=== PATIENT | female | born 1945 | race Caucasian/White ===

== ENCOUNTER 2018-06-19 12:37 | Inpatient (IN) | payer MEDICARE ==
[2018-06-19 15:27] LABS: Hematocrit 35 % (35-47); Hemoglobin 11.9 g/dl (12.0-16.0); Mean Corpuscular HGB Conc 34 g/dl (31-36); Mean Corpuscular Hemoglobin 31 pg (27-31); Mean Corpuscular Volume 90 fL (80-97); Mean Platelet Volume 7.4 um3 (7.4-10.4); Platelet Count 269 10^3/ul (150-450); Red Blood Count 3.88 10^6/ul (4.00-5.40); Red Cell Distribution Width 13 % (10.5-15); White Blood Count 6.2 10^3/ul (3.5-10.8)
[2018-06-19 15:41] LABS: INR 0.93 (0.77-1.02)
[2018-06-19 15:45] LABS: EGFR Non-African American 54.1 (>60)
[2018-06-19 15:53] LABS: ABS Basophils 0 10^3/ul (0-0.2); ABS Neutrophils 5.1 10^3/ul (1.5-7.7); ABS Neutrophils 5.2 10^3/ul (1.5-7.7); Monocytes % 5 % (0-7)
--- NOTE | 2018-06-19 15:57 | RAD ---
Indication: Chest pain. Nausea. Hypertension. Comparison: May 02, 2016 Technique: Upright AP 1528 hours Report: Minimal linear atelectasis at the LEFT lower lung zone. The lungs and pleural spaces are otherwise clear. The heart, pulmonary vasculature, and mediastinal contours are unremarkable. Healed fracture at the LEFT humeral neck noted. IMPRESSION: #. No evidence for acute intrathoracic disease.
--- NOTE | 2018-06-19 16:04 | ED ---
HPI Chest Pain - HPI Summary HPI Summary: This patient is a 73 year old F presenting to [facility] accompanied by family with a chief complaint of sudden back and chest pressure and pain that wrapped around the chest and radiated to the left shoulder lasting for a couple hours this morning that is currently improved. Pain was 10/10; pain is now 2/10. Denies SOB. Patient reports nausea and two bouts of vomiting with the onset of pain. She states she took two tramadol without relief of pain and then took two more. PMHx of HTN and Fibromyalgia. Denies PMHx of ID and CAD. Reports no previous cardiac workup. - History of Current Complaint Chief Complaint: EDChestPainROMI Time Seen by Provider: 06/19/18 14:50 Hx Obtained From: Patient Onset/Duration: Started Hours Ago Timing: Constant Initial Severity: Severe Current Severity: Mild Pain Intensity: 2 Pain Scale Used: 0-10 Numeric Chest Pain Location: Diffuse - back and chest Chest Pain Radiates: Yes Chest Pain Radiates To:: Shoulder Character: Pressure/Squeezing Alleviating Factor(s): Spontaneous Resolution Associated Signs and Symptoms: Positive: Chest Pain, Nausea, Back Pain, Vomiting. Negative: Shortness of Breath - Additional Pertinent History Primary Care Physician: JULISA - Allergy/Home Medications Allergies/Adverse Reactions: Allergies Allergy/AdvReac Type Severity Reaction Status Date / Time aspirin Allergy Swelling Verified 06/19/18 14:38 codeine Allergy See Comment Verified 06/19/18 14:38 PMH/Surg Hx/FS Hx/Imm Hx Endocrine/Hematology History: Denies: Hx Diabetes Cardiovascular History: Reports: Hx Hypertension Denies: Hx Myocardial Infarction Musculoskeletal History: Denies: Hx Osteoporosis - Surgical History Surgery Procedure, Year, and Place: left and right knee replacements. gallbladder Infectious Disease History: No Infectious Disease History: Denies: Hx Clostridium Difficile, Hx Hepatitis, Hx Human Immunodeficiency Virus (HIV), Hx of Known/Suspected MRSA, Traveled Outside the [place] in Last 30 Days - Family History Known Family History: Negative: Cardiac Disease - Social History Alcohol Use: None Substance Use Type: Reports: None Smoking Status (MU): Never Smoked Tobacco Review of Systems Positive: Chest Pain Negative: Shortness Of Breath Positive: Vomiting, Nausea Positive: Myalgia - back and shoulder pain All Other Systems Reviewed And Are Negative: Yes Physical Exam - Summary Physical Exam Summary: GENERAL: Patient is a well developed and nourished female who is lying comfortable in the stretcher. Patient is not in any acute respiratory distress. HEAD AND FACE: Normocephalic EYES: PERRLA, EOMI x 2. EARS: Hearing grossly intact. MOUTH: Oropharynx within normal limits. NECK: Supple, trachea is midline, no adenopathy, no JVD, no carotid bruit. CHEST: Symmetric, no tenderness at palpation LUNGS: Clear to auscultation bilaterally. No wheezing or crackles. CVS: Regular rate and rhythm, S1 and S2 present, no murmurs or gallops appreciated. ABDOMEN: Soft, non-tender. Bowel sounds are normal. No abdominal abnormal pulsations. EXTREMITIES: Full ROM in all major joints, no edema, no cyanosis or clubbing. NEURO: Alert and oriented x 3. No acute neurological deficits. Speech is normal and follows commands. SKIN: Dry and warm Triage Information Reviewed: Yes Vital Signs On Initial Exam: Initial Vitals Temp Pulse Resp BP Pulse Ox 97.8 F 94 16 153/90 96 06/19/18 13:49 06/19/18 13:49 06/19/18 13:49 06/19/18 13:49 06/19/18 13:49 Vital Signs Reviewed: Yes Diagnostics - Vital Signs Vital Signs Temp Pulse Resp BP Pulse Ox 06/19/18 15:42 61 15 135/87 88 06/19/18 15:11 20 134/91 06/19/18 15:00 86 20 96 06/19/18 14:59 95 06/19/18 14:42 16 146/96 06/19/18 14:39 26 06/19/18 13:49 97.8 F 94 16 153/90 96 - Laboratory Lab Results: Lab Results 06/19/18 06/19/18 06/19/18 Range/Units 15:20 15:20 15:20 WBC 6.2 (3.5-10.8) 10^3/ul RBC 3.88 L (4.00-5.40) 10^6/ul Hgb 11.9 L (12.0-16.0) g/dl Hct 35 (35-47) % MCV 90 (80-97) fL MCH 31 (27-31) pg MCHC 34 (31-36) g/dl RDW 13 (10.5-15) % Plt Count 269 (150-450) 10^3/ul MPV 7.4 (7.4-10.4) um3 Neut % (Auto) Not Reportable Lymph % (Auto) Not Reportable Brule % (Auto) Not Reportable Eos % (Auto) Not Reportable Baso % (Auto) Not Reportable Absolute Neuts (auto) 5.2 (1.5-7.7) 10^3/ul Absolute Lymphs (auto) Not Reportable Absolute Monos (auto) Not Reportable Absolute Eos (auto) Not Reportable Absolute Basos (auto) Not Reportable Absolute Nucleated RBC Not Reportable Immature Gran % 1 (0-9) % Neutrophils % 82 (38-83) % Band Neutrophils % 1 (0-8) % Lymphocytes % 11 L (25-47) % Monocytes % 5 (0-7) % Eosinophils % 1 (0-6) % Basophils % 0 (0-2) % Nucleated RBC % Not Reportable Abs Neuts (Manual) 5.1 (1.5-7.7) 10^3/ul Abs Lymphs (Manual) 0.7 L (1.0-4.8) 10^3/ul Abs Monocytes (Manual) 0.3 (0-0.8) 10^3/ul Absolute Eos (Manual) 0.1 (0-0.6) 10^3/ul Abs Basophils (Manual) 0 (0-0.2) 10^3/ul Normal RBC Morphology Normal (Normal) Hem Pathologist Commnt Pending INR (Anticoag Therapy) 0.93 (0.77-1.02) APTT 28.8 (26.0-36.3) seconds Sodium 139 (135-145) mmol/L Potassium 3.7 (3.5-5.0) mmol/L Chloride 101 (101-111) mmol/L Carbon Dioxide 31 (22-32) mmol/L Anion Gap 7 (2-11) mmol/L BUN 21 (6-24) mg/dL Creatinine 1.00 H (0.51-0.95) mg/dL Est GFR ( Amer) 65.4 (>60) Est GFR (Non-Af Amer) 54.1 (>60) BUN/Creatinine Ratio 21.0 H (8-20) Glucose 105 H (70-100) mg/dL Lactic Acid (0.5-2.0) mmol/L Calcium 9.7 (8.6-10.3) mg/dL Magnesium 1.5 L (1.9-2.7) mg/dL Total Bilirubin 0.50 (0.2-1.0) mg/dL AST 32 (13-39) U/L ALT 27 (7-52) U/L Alkaline Phosphatase 94 (34-104) U/L Troponin I 0.01 (<0.04) ng/mL B-Natriuretic Peptide ( - 100) pg/mL Total Protein 7.1 (6.4-8.9) g/dL Albumin 4.3 (3.2-5.2) g/dL Globulin 2.8 (2-4) g/dL Albumin/Globulin Ratio 1.5 (1-3) 06/19/18 06/19/18 Range/Units 15:20 15:20 WBC (3.5-10.8) 10^3/ul RBC (4.00-5.40) 10^6/ul Hgb (12.0-16.0) g/dl Hct (35-47) % MCV (80-97) fL MCH (27-31) pg MCHC (31-36) g/dl RDW (10.5-15) % Plt Count (150-450) 10^3/ul MPV (7.4-10.4) um3 Neut % (Auto) Lymph % (Auto) Brule % (Auto) Eos % (Auto) Baso % (Auto) Absolute Neuts (auto) (1.5-7.7) 10^3/ul Absolute Lymphs (auto) Absolute Monos (auto) Absolute Eos (auto) Absolute Basos (auto) Absolute Nucleated RBC Immature Gran % (0-9) % Neutrophils % (38-83) % Band Neutrophils % (0-8) % Lymphocytes % (25-47) % Monocytes % (0-7) % Eosinophils % (0-6) % Basophils % (0-2) % Nucleated RBC % Abs Neuts (Manual) (1.5-7.7) 10^3/ul Abs Lymphs (Manual) (1.0-4.8) 10^3/ul Abs Monocytes (Manual) (0-0.8) 10^3/ul Absolute Eos (Manual) (0-0.6) 10^3/ul Abs Basophils (Manual) (0-0.2) 10^3/ul Normal RBC Morphology (Normal) Hem Pathologist Commnt INR (Anticoag Therapy) (0.77-1.02) APTT (26.0-36.3) seconds Sodium (135-145) mmol/L Potassium (3.5-5.0) mmol/L Chloride (101-111) mmol/L Carbon Dioxide (22-32) mmol/L Anion Gap (2-11) mmol/L BUN (6-24) mg/dL Creatinine (0.51-0.95) mg/dL Est GFR ( Amer) (>60) Est GFR (Non-Af Amer) (>60) BUN/Creatinine Ratio (8-20) Glucose (70-100) mg/dL Lactic Acid 0.9 (0.5-2.0) mmol/L Calcium (8.6-10.3) mg/dL Magnesium (1.9-2.7) mg/dL Total Bilirubin (0.2-1.0) mg/dL AST (13-39) U/L ALT (7-52) U/L Alkaline Phosphatase (34-104) U/L Troponin I (<0.04) ng/mL B-Natriuretic Peptide 77 ( - 100) pg/mL Total Protein (6.4-8.9) g/dL Albumin (3.2-5.2) g/dL Globulin (2-4) g/dL Albumin/Globulin Ratio (1-3) Result Diagrams: 06/21/18 07:10 06/20/18 05:07 Lab Statement: Any lab studies that have been ordered have been reviewed, and results considered in the medical decision making process. - Radiology CXR Radiology Interpretation Completed By: Radiologist - No evidence for acute intrathoracic disease. ED Physician has reviewed this report. - EKG 1357 Cardiac Rate: NL - 86 BPM EKG Rhythm: Sinus Rhythm EKG Interpretation: borderline prolonged QT, intaventricular conduction delay Chest Pain Course/Dx - Course Course Of Treatment: 73 year old F presenting to [facility] accompanied by family with a chief complaint of sudden back and chest pressure and pain that wrapped around the chest and radiated to the left shoulder lasting for a couple hours this morning that is currently improved. Denies SOB. Patient reports nausea and two bouts of vomiting with the onset of pain. A CXR is unremarkable. An EKG reveals NSR with borderline prolonged QT, intaventricular conduction delay. Patient is given 0.4 Nitro and Plavix. ASA not administed as patient is allergic. Bloodwork is obtained with a troponin of 0.01. Disccused case with Dr. Epstein, who accepts patient for OBV admission. Patient is agreeable with this plan. - Diagnoses Provider Diagnoses: Chest pain - Provider Notifications Discussed Care Of Patient With: Tamanna Epstein - hospitalist Time Discussed With Above Provider: 16:33 Instructed by Provider To: Admit As Inpatient Discharge - Sign-Out/Discharge Documenting (check all that apply): Patient Departure - admit - Discharge Plan Condition: Stable Disposition: ADMITTED TO [facility] - Billing Disposition and Condition Condition: STABLE Disposition: Admitted to [facility] - Attestation Statements Document Initiated by Meiibe: Yes Documenting Scribe: Almita Dawn Provider For Whom Scribe is Documenting (Include Credential): Carolyn Reyna MD Scribe Attestation: Almita Horton, scribed for Carolyn Reyna MD on 06/21/18 at 0749. Scribe Documentation Reviewed: Yes Provider Attestation: The documentation as recorded by the Almita hartmann accurately reflects the service I personally performed and the decisions made by Carolyn monroe MD
[2018-06-19] MEDS ORDERED: Nitroglycerin TAB 0.4 MG* 0.4 MG TAB SL ONE (16:32)
[2018-06-19] MEDS ORDERED: Clopidogrel TAB* 75 MG PO ONE (16:32)
[2018-06-19] MEDS ORDERED: PROCHLORPERAZINE INJ 5 MG/ML 2 ML VIAL IV PRN (17:10)
[2018-06-19] MEDS ORDERED: Acetaminophen TAB* 325 MG PO PRN (17:10)
[2018-06-19] MEDS ORDERED: Iodixanol* (CONTRAST) 320 MG/ML 100 ML SDV IV ONE (17:17)
[2018-06-19] MEDS ORDERED: Magnesium Sulfate IV* 3 GM in NS 0.9% 100 ML* 100 ML IVPB ONE (17:26)
--- NOTE | 2018-06-19 18:19 | RAD ---
EXAM: CT Angiography Abdomen and Pelvis With Intravenous Contrast CLINICAL HISTORY: 73 years old, female; Pain; Chest pain; Type not specified; Abdominal pain; Generalized; Patient HX: No HX of aneurysm per pt; Additional info: Chest/back pain R/O dissection TECHNIQUE: Axial computed tomographic angiography images of the abdomen and pelvis with intravenous contrast. All CT scans at this facility use at least one of these dose optimization techniques: automated exposure control; mA and/or kV adjustment per patient size (includes targeted exams where dose is matched to clinical indication); or iterative reconstruction. 3D and MIP reconstructed images were created and reviewed. Coronal and sagittal reformatted images were created and reviewed. CONTRAST: 100 mL of VISIPAQUE administered intravenously. COMPARISON: No relevant prior studies available. FINDINGS: Limitations: Limited atherosclerosis without dissection, aneurysm, or stenosis. VASCULATURE: Aorta: See above. Celiac trunk and mesenteric arteries: No acute findings. No occlusion or significant stenosis. Renal arteries: No acute findings. No occlusion or significant stenosis. Iliac arteries: No acute findings. No occlusion or significant stenosis. Lung bases: Unremarkable. No mass. No consolidation. ABDOMEN: Liver: Unremarkable. No mass. Gallbladder and bile ducts: Cholecystectomy with biliary ectasia. No ductal dilation. Pancreas: Unremarkable. No ductal dilation. No mass. Spleen: Unremarkable. No splenomegaly. Adrenals: Unremarkable. No mass. Kidneys and ureters: Unremarkable. No hydronephrosis. No solid mass. Stomach and bowel: Unremarkable. No obstruction. No mucosal thickening. PELVIS: Appendix: Normal appendix. Bladder: Unremarkable. No mass. Reproductive: Unremarkable as visualized. ABDOMEN and PELVIS: Intraperitoneal space: Posteriorly in the right side of the pelvis there is a septated 5 x 3.7 cm cystic mass, abnormal for age. This may be benign or malignant. No significant fluid collection. No free air. Bones/joints: Moderate skeletal degenerative change. No acute fracture. No dislocation. Soft tissues: Unremarkable. Lymph nodes: Unremarkable. No enlarged lymph nodes. Other findings: No other acute disease seen. As above. IMPRESSION: 1. Limited atherosclerosis without dissection, aneurysm, or stenosis. 2. Posteriorly in the right side of the pelvis there is a septated 5 x 3.7 cm cystic mass, abnormal for age. This may be benign or malignant. 3. No other acute disease seen. As above. EXAM: CT Angiography Chest With Intravenous Contrast CLINICAL HISTORY: 73 years old, female; Pain; Chest pain; Type not specified; Abdominal pain; Generalized; Patient HX: No HX of aneurysm per pt; Additional info: Chest/back pain R/O dissection TECHNIQUE: Axial computed tomographic angiography images of the chest with intravenous contrast using pulmonary embolism protocol. All CT scans at this facility use at least one of these dose optimization techniques: automated exposure control; mA and/or kV adjustment per patient size (includes targeted exams where dose is matched to clinical indication); or iterative reconstruction. 3D and MIP reconstructed images were created and reviewed. Coronal and sagittal reformatted images were created and reviewed. CONTRAST: 100 mL of VISIPAQUE administered intravenously. 100 mL of VISIPAQUE administered intravenously. COMPARISON: No relevant prior studies available. FINDINGS: Pulmonary arteries: There is a moderate sized segmental embolus in the right upper lobe extending laterally with small additional adjacent embolus extending posteriorly. Aorta: Moderate atherosclerosis without dissection or aneurysm in the chest abdomen or pelvis. Lungs: No consolidation, effusion or edema. Pleural space: See above. Heart: Unremarkable. No cardiomegaly. No significant pericardial effusion. No evidence of RV dysfunction. Bones/joints: There is a subacute or chronic compression fracture superior endplate of T7 with mild anterior wedging and no retropulsion. There is a chronic moderate compression fracture superior endplate of T11 with anterior wedging in 3 mm chronic retropulsion. Old rib fractures. Soft tissues: See above. Lymph nodes: Unremarkable. No enlarged lymph nodes. IMPRESSION: 1. There is a moderate sized segmental embolus in the right upper lobe extending laterally with small additional adjacent embolus extending posteriorly. 2. Moderate atherosclerosis without dissection or aneurysm in the chest abdomen or pelvis. 3. No consolidation, effusion or edema. 4. There is a subacute or chronic compression fracture superior endplate of T7 with mild anterior wedging and no retropulsion. There is a chronic moderate compression fracture superior endplate of T11 with anterior wedging in 3 mm chronic retropulsion.
[2018-06-19] MEDS ORDERED: NS 0.9% 100 ML* 100 ML ONE (19:39)
--- NOTE | 2018-06-19 19:48 | HP ---
CC: Dr. Bear HISTORY AND PHYSICAL: DATE OF ADMISSION: 06/19/18 TIME OF EVALUATION: 4:50 p.m. PRIMARY CARE PROVIDER: Dr. Bear. CHIEF COMPLAINT: Chest pain. HISTORY OF PRESENT ILLNESS: Ms. Restrepo is a 73-year-old lady with past medical history of hypertension , fibromyalgia, osteoarthritis, hyperlipidemia, who presented to the emergency room with complaints o f chest/back pain. The patient states she was on her usual state of health until around 1 in the morning. She states th at she was lying in bed, could not get comfortable and around 2 in the morning, she developed retrost ernal chest pain "under her ribs", radiating all the way down to her hip bones bilaterally and then g oing around to her back "like a vice." She states the pain was greater than 10/10 and it took her br eath away. She states that she took 2 of her tramadol and the pain subsided, but it did not disappea r. She states that she was able to sleep a little bit and then when she woke up, she tried to have some toast with coke and she developed multiple episodes of nausea and vomiting after that. Then she came to the emergency room for further evaluation. She denies fever, chills, cough, shortness of breath, palpitations. She never had an episode of ches t pain like this. There is no history of any recent trips. She has no lower extremity pain or edema . PAST MEDICAL HISTORY: 1. Hypertension. 2. Fibromyalgia. 3. Degenerative joint disease. 4. Diverticulosis. 5. Hyperlipidemia. 6. Osteopenia. PAST SURGICAL HISTORY: 1. Status post laparoscopic cholecystectomy. 2. Status post left total knee arthroplasty in 2007. 3. Right total knee replacement in 2016. MEDICATION LIST: 1. Amitriptyline 100 mg p.o. daily. 2. Amlodipine 5 mg p.o. daily. 3. Meloxicam 7.5 mg p.o. daily. 4. TheraTears [place] 1200 units both eyes daily. 5. Tramadol 50 mg p.o. q.6 hours p.r.n. pain. 6. Clinoril. 7. Oxycodone. 8. Lidocaine. ALLERGIES: With ASPIRIN, the patient has swelling and with CODEINE, the patient became depressed. FAMILY HISTORY: She has no family history of heart disease or diabetes. Her mother passed of colon cancer and her father presumably from lung cancer. SOCIAL HISTORY: There is no history of tobacco, alcohol, or drug use. She is retired and surrogate decision maker is her , Vadim Restrepo or her son, Chalo Restrepo. Phone number is [phone]. REVIEW OF SYSTEMS: A 14-point review of systems was performed and all the pertinent negative and pos itive findings are in the HPI. PHYSICAL EXAMINATION GENERAL: The patient is a pleasant elderly lady, sitting up in the ED stretcher, in no acute distres s. VITAL SIGNS: Temperature 97.8, heart rate is 87, respiratory rate is 20, oxygen saturation is 94% on room air, blood pressure is 146/85. HEENT: Pupils are equal and reactive to light. Extraocular movements are intact. CHEST: Breath sounds bilaterally with no added sounds. CVS: Normal S1, S2. Regular rate and rhythm. ABDOMEN: Soft. Bowel sounds are present. No pulsatile mass. EXTREMITIES: No edema. She has equal pulses bilaterally. NEURO: She is alert, oriented x3. Able to move all 4 extremities. DIAGNOSTIC STUDIES/LAB DATA: The patient had a CBC that showed a WBC of 6.2, hemoglobin of 11.9, he matocrit of 35, platelets of 269 with 82% neutrophils. INR is 0.9. Chemistry showed sodium of 139, potassium of 3.7, chloride of 101, BUN of 21, creatinine of 1, glucose of 105, lactic acid of 0.9, ca lcium of 9.7, magnesium of 1.5. LFTs are normal. First troponin was 0.01. BNP was 77. Chest x-ray shows no evidence for acute intrathoracic disease. EKG done on 06/19/18 at 1357, showed normal sinus rhythm at 86 beats per minute with an incomplete le ft bundle. No ST-T changes. Her QRS appears to be wider now when compared to her prior EKG from Apr suggesting progressive conduction defect. ASSESSMENT AND PLAN: Ms. Restrepo is a 73-year-old lady with past medical history of hypertension, fibro myalgia, degenerative joint disease, diverticulosis, hyperlipidemia that presented to the emergency r oom with complaints of an episode of chest pain radiating to her abdomen and back. 1. Chest pain, rule out acute coronary syndrome; rule out dissection. The patient will be admitted as observation to the telemetry floor and we are going to monitor her rhythm and check serial troponi ns. She will have a CTA of the chest, abdomen, and pelvis to rule out dissection. If she is ruled o ut, I believe she would benefit of a stress test and this can be obtained inpatient versus outpatient . 2. Hypertension. It is controlled. The patient will be continued on her amlodipine. 3. Fibromyalgia. We will continue amitriptyline, meloxicam and tramadol. 4. DVT prophylaxis. The patient has a score of 3 on the DVT Prophylaxis Risk Assessment Guide and s he will be started on subcutaneous heparin. 5. Code status is full. TIME SPENT: Approximately 50 minutes was spent with the patient and family interview, medical record s review, physical examination to complete the admission, more than half of this time was spent face- to-face with the patient and coordination of care. [id number] #: [id number]
[2018-06-19] MEDS: Enoxaparin(*) 80 MG/0.8 ML SYR SUBCUT SCH (19:57)
[2018-06-19] MEDS: traMADol TAB* 50 MG PO PRN (20:12)
[2018-06-19] MEDS: Amitriptyline TAB* 100 MG PO SCH (20:41)
[2018-06-19] MEDS ORDERED: Amitriptyline TAB* 100 MG PO SCH (21:00)
[2018-06-19] MEDS ORDERED: Heparin VIAL(*) 5000 UNITS/ML VIAL (FIVE THOUSAND) SUBCUT SCH (22:00)
[2018-06-20] MEDS: Enoxaparin(*) 80 MG/0.8 ML SYR SUBCUT SCH ×2 (05:21→17:39)
[2018-06-20] MEDS: traMADol TAB* 50 MG PO PRN ×3 (05:26→21:33)
[2018-06-20 05:33] LABS: ABS Basophils 0 10^3/ul (0-0.2); ABS Eosinophils 0.1 10^3/ul (0-0.6); ABS Lymphocytes 1.5 10^3/ul (1.0-4.8); ABS Monocytes 0.5 10^3/ul (0-0.8); ABS Neutrophils 3.2 10^3/ul (1.5-7.7); ABS Nucleated RBC 0 10^3/ul; Eosinophil % 2.3 % (0-6); Hematocrit 36 % (35-47); Hemoglobin 11.9 g/dl (12.0-16.0); Lymphocyte % 27.8 % (25-47); Mean Corpuscular HGB Conc 34 g/dl (31-36); Mean Corpuscular Hemoglobin 31 pg (27-31); Mean Corpuscular Volume 91 fL (80-97); Mean Platelet Volume 7.6 um3 (7.4-10.4); Nucleated Red Blood Cells % 0.1; Platelet Count 255 10^3/ul (150-450); Red Cell Distribution Width 13 % (10.5-15); White Blood Count 5.3 10^3/ul (3.5-10.8)
[2018-06-20 05:48] LABS: EGFR Non-African American 58.8 (>60)
[2018-06-20] MEDS: CMC:Meloxicam(NF) 7.5 MG TAB PO SCH (08:39)
[2018-06-20] MEDS: amLODIPine TAB* 5 MG PO SCH (08:39)
--- NOTE | 2018-06-20 13:12 | PN ---
Subjective Date of Service: 06/20/18 Interval History: HOSPITALIST PROGRESS NOTE Patient seen and examined at bedside. Care reviewed and d/w Nettie Peters RN. She feels better today. Chest pain is resolved, denies dyspnea even though her SO2 was in the 80s. Denies abdominal pain. Had some "twitching" on her right hip , but no pain. Family History: Unchanged from Admission Social History: Unchanged from Admission Past Medical History: Unchanged from Admission Objective Active Medications: Acetaminophen (Tylenol Tab*) 650 mg PO Q6H PRN PRN Reason: pain/fever Amitriptyline HCl (Elavil Tab*) 200 mg PO BEDTIME [facility] Last Admin: 06/19/18 20:41 Dose: 200 mg Amlodipine Besylate (Norvasc Tab*) 5 mg PO DAILY [facility] Last Admin: 06/20/18 08:39 Dose: 5 mg Enoxaparin Sodium (Lovenox(*)) 80 mg SUBCUT Q12H [facility] Last Admin: 06/20/18 05:21 Dose: 80 mg Meloxicam (Mobic(Nf)) 7.5 mg PO DAILY [facility] Last Admin: 06/20/18 08:39 Dose: 7.5 mg Prochlorperazine Edisylate (Compazine Inj*) 5 mg IV Q6H PRN PRN Reason: NAUSEA/VOMITING Tramadol HCl (Ultram*) 50 mg PO Q6HR PRN PRN Reason: PAIN Last Admin: 06/20/18 05:26 Dose: 50 mg Vital Signs - 8 hr 06/20/18 06/20/18 06/20/18 05:26 07:29 08:00 Temperature 98.1 F Pulse Rate 93 Respiratory 18 20 Rate Blood Pressure 153/83 (mmHg) O2 Sat by Pulse 98 98 Oximetry 06/20/18 06/20/18 06/20/18 08:40 11:19 12:00 Temperature 98.1 F Pulse Rate 80 Respiratory 18 18 Rate Blood Pressure 127/75 (mmHg) O2 Sat by Pulse 96 98 Oximetry Oxygen Devices in Use Now: Nasal Cannula - 2 liters Appearance: Pleasant elderly lady sitting up in a chair in NAD. Eyes: No Scleral Icterus Ears/Nose/Mouth/Throat: Mucous Membranes Moist Neck: Trachea Midline Respiratory: Symmetrical Chest Expansion and Respiratory Effort, Clear to Auscultation Cardiovascular: RRR - Normal S1 and S2 Abdominal: NL Sounds; No Tenderness; No Distention Neurological: Alert and Oriented x 3, NL Muscle Strength and Tone Result Diagrams: 06/20/18 05:07 06/20/18 05:07 Assess/Plan/Problems-Billing Assessment: Mrs Restrepo is a 73yo F with PMH of HTN, fibromyalgia, HLD, DJD, who presented to ED with c/o CP, found to have PE. - Patient Problems (1) Acute hypoxemic respiratory failure Comment: - Secondary to PE. - Continue supplemental O2. (2) Pulmonary embolism Comment: - CTA chest showed right PE - no family h/o blood clots, no recent surgeries or trips. - Check LE doppler and echocardiogram. - CT abdome showed pelvic mass could represent ovarian tumor - will continue Lovenox for now as she may need a biopsy. (3) Pelvic mass Comment: - CT showed a 5x3 cm right pelvic mass - suspect ovarian - will check CA 125 and CEA. - Oncology consult requested. (4) Fibromyalgia Comment: - Continue amitrityline and tramadol. (5) Hypertension Comment: - BP well controlled. Continue amlodipine. (6) DVT prophylaxis Comment: - Lovenox. (7) Full code status Status and Disposition: Change to inpatient.
[2018-06-20] MEDS: Potassium Chlor TAB* 20 MEQ TAB.ER PO SCH ×3 (14:19→21:34)
--- NOTE | 2018-06-20 15:02 | RAD ---
HISTORY: Pulmonary embolism patient denies any lower extremity symptoms TECHNIQUE: Multiple transverse and longitudinal ultrasound images were obtained of the veins of the bilateral lower extremities using grayscale, color Doppler, and spectral Doppler imaging with and without compression and with augmentation. FINDINGS: VEINS: The common femoral vein, deep femoral vein, femoral vein and popliteal vein are compressible throughout their course, with normal flow on color Doppler imaging and normal response to augmentation on spectral Doppler imaging. SOFT TISSUES: Grossly normal. No large popliteal fossa cyst was identified. IMPRESSION: No sonographic evidence of deep vein thrombosis.
[2018-06-20] MEDS: Amitriptyline TAB* 100 MG PO SCH (21:32)
[2018-06-21] MEDS: Enoxaparin(*) 80 MG/0.8 ML SYR SUBCUT SCH ×2 (05:56→18:20)
[2018-06-21 07:25] LABS: ABS Basophils 0 10^3/ul (0-0.2); ABS Eosinophils 0.2 10^3/ul (0-0.6); ABS Lymphocytes 1.9 10^3/ul (1.0-4.8); ABS Monocytes 0.5 10^3/ul (0-0.8); ABS Neutrophils 2.5 10^3/ul (1.5-7.7); ABS Nucleated RBC 0 10^3/ul; Eosinophil % 3.5 % (0-6); Hematocrit 35 % (35-47); Lymphocyte % 37.5 % (25-47); Mean Corpuscular HGB Conc 34 g/dl (31-36); Mean Corpuscular Hemoglobin 31 pg (27-31); Mean Corpuscular Volume 91 fL (80-97); Mean Platelet Volume 7.5 um3 (7.4-10.4); Nucleated Red Blood Cells % 0; Platelet Count 264 10^3/ul (150-450); Red Cell Distribution Width 13 % (10.5-15); White Blood Count 5.1 10^3/ul (3.5-10.8)
[2018-06-21 07:51] LABS: EGFR Non-African American 52.2 (>60)
[2018-06-21] MEDS: amLODIPine TAB* 5 MG PO SCH (08:35)
[2018-06-21] MEDS: CMC:Meloxicam(NF) 7.5 MG TAB PO SCH (08:35)
--- NOTE | 2018-06-21 11:24 | ECHO ---
Patient: LADARIUS GIANG [facility] Rec#: [id number] : 1945 Date: 06/21/2018 Age: 73y Height: 173 cm / 68.1 in Weight: 83.5 kg / 184.0 lbs Sex: F BSA: 2 Room#: 433 Admit Date#: 06/20/2018 Type: Inpatient Referring: Taamnna Jimenes MD Reading: Kody Leonard MD Wooden Furniture Polisher: Majo Marina RN RDCS CC: Nallely Bear MD Transthoracic Echocardiogram Indication: Pulmonary embolism BP: 124/62 HR: 77 Rhythm: NSR Findings History: HTN, HLD, fibromyalgia Technical Comments: The study quality is fair. The study is technically limited due to patient body habitus. Left Ventricle: The left ventricular chamber size is normal. Mild to moderate concentric left ventricular hypertrophy is observed. There is increased basal septal hypertrophy noted without evidence of an increased gradient across the left ventricular outflow tract. Global left ventricular wall motion and contractility are within normal limits. There is normal left ventricular systolic function. The estimated ejection fraction is 60-65%. There is no consistent Doppler evidence of clinically significant diastolic dysfunction. Left Atrium: The left atrial chamber size is normal. Right Ventricle: The right ventricular cavity size is normal. The right ventricular global systolic function is normal. Right Atrium: The right atrium is not well visualized. The right atrial cavity size is normal. Aortic Valve: The aortic valve is trileaflet. The aortic valve leaflets are mildly thickened. There is aortic annular calcification. There is no evidence of aortic regurgitation. There is no evidence of aortic stenosis. Mitral Valve: The mitral valve leaflets are mildly thickened. There is mild mitral regurgitation. There is no evidence of mitral stenosis. Tricuspid Valve: The tricuspid valve leaflets are normal. There is trace to mild tricuspid regurgitation. No pulmonary hypertension is noted. There is no tricuspid stenosis. Pulmonic Valve: The pulmonic valve structure is not well visualized. There is a trace pulmonic regurgitation. There is no pulmonic stenosis. Pericardium: There is no significant pericardial effusion. A pericardial fat pad is visualized. Aorta: There is mild dilatation of the ascending aorta. There is no dilatation of the aortic arch. There is no dilation of the aortic root. Pulmonary Artery: The main pulmonary artery is not well visualized. Venous: The inferior vena cava appears normal in size. There is an approximate 50% respiratory change in the inferior vena cava dimension. Conclusions Global left ventricular wall motion and contractility are within normal limits. There is normal left ventricular systolic function. The estimated ejection fraction is 60-65%. Mild to moderate concentric left ventricular hypertrophy is observed. The right ventricular global systolic function is normal. The aortic valve leaflets are mildly thickened. There is no evidence of aortic stenosis. There is no evidence of aortic regurgitation. There is mild mitral regurgitation. There is trace to mild tricuspid regurgitation. No pulmonary hypertension is noted. There is no significant pericardial effusion. Measurements Name Value Normal Range RVDdMajor (2D) 3.1 cm (2.2 - 4.4) RAd ISD 4CH 3.6 cm (3.4 - 4.9) RA (A4C)W 2.7 cm (2.9 - 4.6) IVSd (2D) 1.3 cm (0.6 - 1) LVPWd (2D) 1.3 cm (0.6 - 1) LVIDd (2D) 4.1 cm (3.6 - 5.4) LVIDs (2D) 2.7 cm - LV FS (2D) 34 % (25 - 45) Aortic Annulus 2 cm (1.4 - 2.6) Ao root diameter (2D) 2.9 cm (2.1 - 3.5) Ascending Ao 3.5 cm (2.1 - 3.4) Aortic arch 2.9 cm (1.8 - 3.4) LA dimension (AP) 2D 2.8 cm (2.3 - 3.8) LAd ISD 4CH 3.9 cm (2.9 - 5.3) LA ISD 4CH W 3.6 cm (2.5 - 4.5) Name Value Normal Range LA ESV BP (A/L) index 13.6 ml/m2 - Name Value Normal Range MV E-wave Vmax 0.75 m/sec - MV deceleration time 208 msec - MV A-wave Vmax 1.1 m/sec - MV E:A ratio 0.7 ratio - LV septal e' Vmax 0.07 m/sec - LV lateral e' Vmax 0.07 m/sec - LV E:e' septal ratio 10.7 ratio - LV E:e' lateral ratio 10.7 ratio - Name Value Normal Range AV Vmax 1.4 m/sec - AV VTI 23.8 cm - AV peak gradient 8 mmHg - AV mean gradient 5 mmHg - LVOT Vmax 0.87 m/sec - LVOT VTI 16.9 cm - LVOT peak gradient 3 mmHg - LVOT mean gradient 2 mmHg - LEANN Vmax 0.64 m/sec - Name Value Normal Range TR Vmax 2.4 m/sec - TR peak gradient 23 mmHg - RAP 8 mmHg - RVSP 31 mmHg - IVC diameter 1.4 cm - Name Value Normal Range PV Vmax 0.87 m/sec -
[2018-06-21] MEDS ORDERED: Polyethylene Glycol 3350* 17 GM PACKET PO PRN (13:19)
[2018-06-21] MEDS ORDERED: Senna TAB PO PRN (13:19)
--- NOTE | 2018-06-21 14:36 | PN ---
Subjective Date of Service: 06/21/18 Interval History: HOSPITALIST PROGRESS NOTE Patient seen and examined at bedside. She feels well today, offers no other complaints. Family History: Unchanged from Admission Social History: Unchanged from Admission Past Medical History: Unchanged from Admission Objective Active Medications: Acetaminophen (Tylenol Tab*) 650 mg PO Q6H PRN PRN Reason: pain/fever Amitriptyline HCl (Elavil Tab*) 200 mg PO BEDTIME [facility] Last Admin: 06/20/18 21:32 Dose: 200 mg Amlodipine Besylate (Norvasc Tab*) 5 mg PO DAILY [facility] Last Admin: 06/21/18 08:35 Dose: 5 mg Enoxaparin Sodium (Lovenox(*)) 80 mg SUBCUT Q12H [facility] Last Admin: 06/21/18 05:56 Dose: 80 mg Meloxicam (Mobic(Nf)) 7.5 mg PO DAILY [facility] Last Admin: 06/21/18 08:35 Dose: 7.5 mg Polyethylene Glycol/Electrolytes (Miralax*) 17 gm PO 0800,2100 PRN PRN Reason: CONSTIPATION Last Admin: 06/21/18 14:17 Dose: 17 gm Prochlorperazine Edisylate (Compazine Inj*) 5 mg IV Q6H PRN PRN Reason: NAUSEA/VOMITING Senna (Senokot Tab*) 2 tab PO DAILY PRN PRN Reason: CONSTIPATION Tramadol HCl (Ultram*) 50 mg PO Q6HR PRN PRN Reason: PAIN Last Admin: 06/20/18 21:33 Dose: 50 mg Vital Signs - 8 hr 06/21/18 06/21/18 06/21/18 07:32 08:00 11:30 Temperature 97.8 F 98.3 F Pulse Rate 82 97 Respiratory 16 16 16 Rate Blood Pressure 129/77 119/75 (mmHg) O2 Sat by Pulse 92 92 98 Oximetry Oxygen Devices in Use Now: None Appearance: Pleasant elderly lady lying in bed in NAD. Eyes: No Scleral Icterus Ears/Nose/Mouth/Throat: Mucous Membranes Moist Neck: Trachea Midline Respiratory: Symmetrical Chest Expansion and Respiratory Effort, Clear to Auscultation Cardiovascular: RRR - Normal S1 and S2 Abdominal: NL Sounds; No Tenderness; No Distention Neurological: Alert and Oriented x 3, NL Muscle Strength and Tone Result Diagrams: 06/21/18 07:10 06/21/18 07:10 Assess/Plan/Problems-Billing Assessment: Mrs Restrepo is a 73yo F with PMH of HTN, fibromyalgia, HLD, DJD, who presented to ED with c/o CP, found to have PE. - Patient Problems (1) Acute hypoxemic respiratory failure Comment: - Secondary to PE. - Continue supplemental O2. (2) Pulmonary embolism Comment: - CTA chest showed right PE - no family h/o blood clots, no recent surgeries or trips. - Check LE doppler and echocardiogram. - CT abdome showed pelvic mass could represent ovarian tumor - will continue Lovenox for now as she may need a biopsy. (3) Pelvic mass Comment: - CT showed a 5x3 cm right pelvic mass - suspect ovarian - CA 125 and CEA WNL. - Awaiting Oncology consult - may need to be seen by Onc PAD MACHINE OFFBEARER as outpatient. (4) Fibromyalgia Comment: - Continue amitrityline and tramadol. (5) Hypertension Comment: - BP well controlled. Continue amlodipine. (6) DVT prophylaxis Comment: - Lovenox. (7) Full code status Status and Disposition: Anticipate d/c later today depending on Onc recommendations.
[2018-06-21] MEDS: traMADol TAB* 50 MG PO PRN (20:55)
[2018-06-21] MEDS: Amitriptyline TAB* 100 MG PO SCH (20:55)
[2018-06-22] MEDS: Enoxaparin(*) 80 MG/0.8 ML SYR SUBCUT SCH (05:59)
[2018-06-22 07:31] VITALS: BP 146/75
[2018-06-22] MEDS: CMC:Meloxicam(NF) 7.5 MG TAB PO SCH (08:04)
[2018-06-22] MEDS: amLODIPine TAB* 5 MG PO SCH (08:04)
--- NOTE | 2018-06-23 19:37 | CONS ---
CONSULTATION REPORT: DATE OF CONSULT: 06/21/18 REASON FOR CONSULT: Pulmonary embolus and pelvic mass. HISTORY OF PRESENT ILLNESS: Ms. Restrepo is a 73-year-old female, who presented early in the morning of 06/19/18, with several hours of acute back and chest pain. She developed pain that was sharp in the back rotating around her ribs to her sternum at approximately 1 a.m. Pain was severe and it was described as excruciating, 9/10 in intensity. She initially tried to sleep it off, but the pain woke her up several times. Took a tramadol at ER, which had a modest effect. In the morning, she developed nausea, tried to drink soda and vomited. This directed coming to the emergency room. She has not had any pain like this previously. She denies fevers, chills, cough, shortness of breath, or palpitations. Has had no history of abdominal pain, difficulty with urination, change in bowel habits. On presentation, she was hypertensive, BP 153/90 and tachycardic with pulse of 94, but with oxygen saturation of 94% to 95% on room air. Initial blood work showed a creatinine of 1, normal liver function tests, magnesium slightly low at 1.5, troponin of 0.01 with repeat of 00, and a hemoglobin of 11.7, normal indices and other blood counts were normal. She had a CT scan with angiography through the pelvis with IV contrast. Vasculature and aorta were intact. She was found to have a right upper lobe pulmonary embolus with a relatively modest clot burden and posteriorly in the right pelvis , there was a 3.7 cm mass. It was mixed, solid and cystic associated with the right ovary. No regional lymphadenopathy, no peritoneal disease, and the left- sided ovary was unremarkable. She was admitted and started on anticoagulation. Within 1 day of admission, pain has subsided dramatically. Today, on 06/21/18 , she is feeling relatively well. Breathing has been fine. No additional pain. She subsequently had an echocardiogram that showed no RV strain and normal LV function and she had lower extremity Dopplers that were negative. She has an ESR of 17. She had a CEA and CA-125 that were both normal. Hematology consult for the pulmonary embolus as well as the pelvic mass. PAST MEDICAL HISTORY: 1. Fibromyalgia. 2. Osteoarthritis with left total knee replacement. 3. Hyperlipidemia. 4. Diverticulosis. 5. Osteopenia. 6. Hypertension. PAST SURGICAL HISTORY: Left knee replacement, 2007; history of cholecystectomy. FAMILY HISTORY: Mother in 1954 of colon cancer. Father of lung cancer, who was a smoker and she had a brother who of esophageal cancer. SOCIAL HISTORY: . No smoking. No drinking. Surrogate decision makers are her , Vadim Restrepo and her son, Logan Restrepo, who works at [employer] She is retired. REVIEW OF SYSTEMS: HEENT: Difficulty with lower filling. Age related hearing loss. Still some pain in the joints and fibromyalgia pain that is chronic for her. A 14-point systems otherwise reviewed and negative. PHYSICAL EXAM: Temperature 98.3, BP 146/75, pulse 88, respirations 16. HEENT: Mucosa moist. No lesions. No active dental disease that we can see. No cervical or supraclavicular lymphadenopathy. Lungs: Clear to auscultation. Heart: Regular rate and rhythm. S1, S2. No murmurs, rubs, or gallops. Abdomen : Mildly obese, nontender, nondistended. No hepatosplenomegaly. She has mild tenderness in the right lower quadrant. Nodes: No peripheral lymphadenopathy. Extremities: She has trace edema on the left. Good pulses x4 and warm to the touch. Neurologic: Alert and oriented x3. Grossly nonfocal, but full exam otherwise deferred. DIAGNOSTIC STUDIES/LAB DATA: CT scan was reviewed with Dr. Small and does show pelvic lesion. Cannot appreciate any other disease. Labs: Creatinine 1.0, magnesium was slightly low 1.5 on admission, and otherwise as reviewed above. ASSESSMENT AND PLAN: A 73-year-old female with new diagnosis of pulmonary embolus as well as right ovarian mass. Differential diagnosis for thrombosis s idiopathic pulmonary embolus with benign pelvic lesion, early stage ovarian cancer and associated pulmonary embolus. Differential diagnoses for the ovarian mass are benign cyst, early malignancy. 1. Ovarian mass. There is a reasonable probability that the lesion is benign. At this point, if it is malignant, she is clinically stage 1. I am going to refer her directly to a gynecologic oncologist. It is possible that she would have a diagnostic laparoscopy with removal of the lesion. Additional studies could include a pelvic ultrasound, but it may be more beneficial to her if done at the institution of her surgeon. She would like to stay as local as possible and referral made to Dr. Mascorro at [facility]. 2. Pulmonary embolism. Agree with Lovenox and I would continue Lovenox until we made plans for her surgery. Currently on 80 mg subcu q.12, can be discharged on 120 mg subcu daily. Will follow up as out patient and check anti Xa level. If she is found to have an ovarian malignancy that is removed, then short-term anticoagulation is appropriate. If it is an idiopathic pulmonary embolus, we would need to consider longer term therapy. Once we are sure, there are no additional procedures, we would likely change her to a novel oral anticoagulant such as Xarelto. There is data for Xarelto for 6 to 12 months at 20 mg daily followed by 10 mg daily for long-term treatment of idiopathic pulmonary embolism. 3. We will plan on seeing her in clinic within 2 weeks of discharge. [id number]/[facility] #: [id number] MTDD
== END 2018-06-22 12:49 | disposition home or self-care (01) | DRG 189 ==
LOC: ED 12:37 → MEDTELE 17:15 → OBSVTOIN 06-20 13:02
PROVIDERS: ADMIT Internal Medicine; ATTEND Internal Medicine
DX: J96.01 Acute respiratory failure with hypoxia (principal); I26.99 Other pulmonary embolism without acute cor pulmonale; R19.03 Right lower quadrant abdominal swelling, mass and lump; M79.7 Fibromyalgia; I10 Essential (primary) hypertension; E78.5 Hyperlipidemia, unspecified; M19.90 Unspecified osteoarthritis, unspecified site; M85.80 Other specified disorders of bone density and structure, unspecified site; Z96.652 Presence of left artificial knee joint; Z80.0 Family history of malignant neoplasm of digestive organs; Z80.1 Family history of malignant neoplasm of trachea, bronchus and lung; Z79.891 Long term (current) use of opiate analgesic; Z79.899 Other long term (current) drug therapy; Z88.6 Allergy status to analgesic agent; Z88.5 Allergy status to narcotic agent
CPT/HCPCS: 36415; 71045; 71275; 74174; 80048; 80053; 82378; 83605; 83735; 83880; 84484; 85025; 85060; 85610; 85730; 86304; 93005; 93306; 93970; 99284; A9270-GY; G0378; J1650; J3475; Q9967

== ENCOUNTER 2019-11-11 12:19 | Emergency (ER) | payer MEDICARE ==
[2019-11-11 13:19] VITALS: BP 100/73
--- NOTE | 2019-11-11 13:59 | UC ---
Back Pain HPI - HPI Summary HPI Summary: 74 yo with fall last week. She tripped and fell forward onto a carpeted floor, grabbing a coffee table on the way down. Fell onto her left side, with pain in the thoracic spine, left ribs and left groin area since. She has been using a walker for support, and comes today because pain is not remitting. She is taking tramadol 200mg per day along with acetaminophen 1000mg once or twice per day. She has also been using 1/2 tablet of oxycodone left over from her hysterectomy a year ago. This is not particularly helpful to her. Her pain actually increased significantly 3 days ago when she forced herself to walk around a lot more using the walker. She does not report a history of osteoporosis or fragility fractures. Typically does twice weekly lap swimming at [employer]. --Takes Xarelto due to hx of PE. - History of Current Complaint Chief Complaint: UCLowerExtremity Stated Complaint: BACKPAIN, SIDE PAIN AFTER FALL Time Seen by Provider: 11/11/19 13:58 Hx Obtained From: Patient Onset/Duration: Sudden Onset, Lasting Days - 7 Timing: Constant Severity Initially: Severe Severity Currently: Severe Pain Intensity: 10 Character: Aching Aggravating Factor(s): Lifting, Bending, Walking, Cough Alleviating Factor(s): Rest, OTC Meds Associated Signs And Symptoms: Positive: Flank Pain. Negative: Bruising, Fever - Risk Factors AAA Risk Factors: Negative TAD Risk Factors: Negative Cauda Equina Risk Factors: Negative Epidural Abscess Risk Factors: Negative - Allergies/Home Medications Allergies/Adverse Reactions: Allergies Allergy/AdvReac Type Severity Reaction Status Date / Time lidocaine Allergy Intermediate See Comment Verified 11/11/19 13:19 sulindac [From Clinoril] Allergy Mild Rash Verified 11/11/19 13:19 aspirin Allergy Swelling Verified 11/11/19 13:19 codeine AdvReac Intermediate See Comment Verified 11/11/19 13:19 PMH/Surg Hx/FS Hx/Imm Hx - Additional Past Medical History Additional PMH: hysterectomy for ovarian mass, not malignant. Fibromyalgia. Cardiovascular History: Hypertension Respiratory History: Pulmonary Embolism Other History Of: Negative For: Anticoagulant Therapy - Surgical History Surgical History: Yes Surgery Procedure, Year, and Place: left and right knee replacements. gallbladder - Family History Known Family History: Positive: Non-Contributory Negative: Cardiac Disease Family History: no reported issues in family lineage - Social History Occupation: Retired Lives: With Family Alcohol Use: None Substance Use Type: None Smoking Status (MU): Never Smoked Tobacco - Immunization History Most Recent Influenza Vaccination: 2014 Most Recent Tetanus Shot: 2 YEARS AGO Most Recent Pneumonia Vaccination: HAD IT IN THE PAST Review of Systems All Other Systems Reviewed And Are Negative: Yes Constitutional: Positive: Fatigue Skin: Positive: Negative Eyes: Positive: Negative ENT: Positive: Negative Respiratory: Negative: Shortness Of Breath, Cough Cardiovascular: Positive: Chest Pain - from injury. Negative: Palpitations Gastrointestinal: Positive: Negative Genitourinary: Positive: Frequency, Other - hx of vaginal prolapse; has a pessary in place. Motor: Positive: Decreased ROM Neurovascular: Positive: Negative Musculoskeletal: Positive: Arthralgia Neurological: Positive: Negative Psychological: Positive: Negative Is Patient Immunocompromised?: No Physical Exam Triage Information Reviewed: Yes Appearance: Well-Appearing, Pain Distress - moderate Vital Signs: Initial Vital Signs Temp 97.7 F 11/11/19 13:14 Pulse 62 11/11/19 13:14 Resp 18 11/11/19 13:14 BP 100/73 11/11/19 13:14 Pulse Ox 96 11/11/19 13:14 Eye Exam: Normal ENT: Positive: Pharynx normal Neck: Positive: Supple, Nontender, No Lymphadenopathy Respiratory: Positive: Lungs clear, Normal breath sounds Cardiovascular: Positive: RRR, No Murmur Musculoskeletal Exam: Other - Kyphotic chest wall with tenderness approximately T2 through T9. + tenderness with palpation of the left rib cage. Musculoskeletal: Positive: ROM Limited @ - Left hip: has some active flexion but deferred standing until xray is done. Neurological: Positive: Alert, Muscle Tone Normal Psychological Exam: Normal Skin Exam: Normal Diagnostics - Radiology No standard instances Radiology Interpretation Completed By: Radiologist Summary of Radiographic Findings: Per Dr. Mcmullen: Non displaced fracture of the left 10th rib. Hips without evidence of displaced fracture. Thoracic spine with old T7 and T 10 fractures. Back Pain Course/Dx - Course Course Of Treatment: Discussed pain control. [facility] search number [id number] shows history of tramadol rx, monthly rx's for 50mg #120. No other recent rx for controlled substances. Add oxycodone for control of pain instead of tramadol. Follow up with sameer Mccarty or Dr. Bear. Continue walker for support. - Differential Dx/Diagnosis Differential Diagnosis/HQI/PQRI: Strain, Other - fragility fracture, rib fracture. Provider Diagnosis: Fracture of rib of left side Discharge ED - Sign-Out/Discharge Documenting (check all that apply): Patient Departure All imaging exams completed and their final reports reviewed: Yes - Discharge Plan Condition: Stable Disposition: HOME Prescriptions: Oxycodone HCl 5 mg PO QID PRN #20 tab MDD 4 PRN Reason: Pain - Severe Patient Education Materials: Rib Fracture (ED) Referrals: Nallely Bear MD [Primary Care Provider] - Additional Instructions: You have a fracture of the left 10th rib, which is not displaced. HOLD tramadol and use oxycodoen for control of pain for the next several days. Continue use of acetamimnophen 1000mg three times daily to assist with control of pain. Ensure that you use a stool softenter because oxycodone might cause constipation. Follow up with Dr. Bear or Sameer Mccarty early next week to review pain control. - Billing Disposition and Condition Condition: STABLE Disposition: Home
== END 2019-11-11 15:30 | disposition home or self-care (01) ==
LOC: UCEAST 12:19
DX: S22.32XA Fracture of one rib, left side, initial encounter for closed fracture (principal); M54.6 Pain in thoracic spine; R10.32 Left lower quadrant pain; M79.7 Fibromyalgia; I10 Essential (primary) hypertension; Z86.711 Personal history of pulmonary embolism; Z88.7 Allergy status to serum and vaccine; Z88.8 Allergy status to other drugs, medicaments and biological substances; Z88.6 Allergy status to analgesic agent; Z88.5 Allergy status to narcotic agent; W18.30XA Fall on same level, unspecified, initial encounter; Y92.9 Unspecified place or not applicable
CPT/HCPCS: 72070; 99212; G0463